=== PATIENT | female | born 1945 | race Caucasian/White ===

== ENCOUNTER → 2018-07-03 13:46 | Outpatient (CLI) | payer MEDICARE, OTHER | END | disposition home or self-care (01) | LOC: D.CT 13:46 | DX: R10.9 Unspecified abdominal pain (principal) ==

== ENCOUNTER → 2018-08-09 12:55 | Outpatient (CLI) | payer MEDICARE, OTHER | END | disposition home or self-care (01) | LOC: D.CT 12:55 | DX: I99.9 Unspecified disorder of circulatory system (principal) ==